=== PATIENT | female | born 1960 | race Two or more races ===

== ENCOUNTER 2021-12-17 08:27 | Outpatient (REF) | payer MEDICAID, SELFPAY ==
--- NOTE | ~2021-12-17 | XR_ITS ---
EXAMINATION: XR SHOULDER, RIGHT CLINICAL INFORMATION: Shoulder pain COMPARISON: None TECHNIQUE: Three views of the right shoulder. FINDINGS: Visualized portions of the proximal right humerus demonstrate no fracture. Humeral head demonstrates good articulation with the glenoid fossa. There are mild hypertrophic changes of the right acromioclavicular joint. Visualized right-sided ribs and lung parenchyma are unremarkable. XR/XR shoulder RT min 2V IMPRESSION: Mild degenerative changes of the right shoulder without fracture or dislocation.
== END 2021-12-17 08:28 | disposition home or self-care (01) ==
LOC: HO.HOSX 08:27
PROVIDERS: Visit Provider Orthopaedic Surgery
DX: M25.311 Other instability, right shoulder (principal)
CPT/HCPCS: 73030; 99202

== ENCOUNTER → 2022-02-04 13:36 | Outpatient (BNVA) | payer MEDICAID, SELFPAY | PROVIDERS: PCP Internal Medicine; Referring Provider Internal Medicine; Visit Provider Internal Medicine Cardiovascular Disease | DX: R00.2 Palpitations (principal) | CPT/HCPCS: 93005; 99202 ==

== ENCOUNTER → 2022-03-30 14:35 | Outpatient (REF) | payer MEDICAID, SELFPAY ==
--- NOTE | 2022-03-30 14:44 | HM_ITS ---
* Total monitoring time 6 days and 23 hours. * Underlying rhythm is sinus. Average 62/Min. Range 43 to 98/Min. * No atrial fibrillation or flutter or AV blocks or pauses. * Very rare ventricular ectopy with minimal burden. * No patient events.5 MTDD
== END ==
LOC: HO.CARD 14:35
PROVIDERS: Visit Provider Internal Medicine Cardiovascular Disease
DX: R00.2 Palpitations (principal)
CPT/HCPCS: 93242

== ENCOUNTER → 2022-04-26 12:44 | Outpatient (BNVA) | payer MEDICAID, SELFPAY | PROVIDERS: PCP Internal Medicine; Visit Provider Internal Medicine Pulmonary Disease | DX: J44.9 Chronic obstructive pulmonary disease, unspecified (principal); G47.33 Obstructive sleep apnea (adult) (pediatric); R91.8 Other nonspecific abnormal finding of lung field | CPT/HCPCS: 99202 ==

== ENCOUNTER → 2022-04-28 14:29 | Outpatient (BNVA) | payer MEDICAID, SELFPAY | PROVIDERS: PCP Internal Medicine; Referring Provider Internal Medicine; Visit Provider Internal Medicine Cardiovascular Disease | DX: R00.2 Palpitations (principal); R06.09 Other forms of dyspnea; U07.1 COVID-19 | CPT/HCPCS: 99212 ==

== ENCOUNTER 2022-04-30 12:40 | Outpatient (REF) | payer MEDICAID, SELFPAY ==
--- NOTE | ~2022-04-30 | CT_ITS ---
EXAMINATION: CT CHEST WITHOUT CONTRAST CLINICAL INFORMATION: Other nonspecific abnormal finding of lung field COMPARISON: None TECHNIQUE: Multidetector volumetric CT imaging of the chest was done. Axial MIP volume rendering provided. Sagittal and coronal reformatted images were obtained. This CT examination was performed using dose optimization techniques as appropriate, variously including the following: *Automated exposure control *Adjustment of mA and/or kV according to patient size (this includes techniques or standardized protocols for targeted exams where dose is matched to indication/reason for exam; i.e. extremities or head) *Use of iterative reconstruction technique DLP: 347 mGy-cm FINDINGS: LUNGS: There is a 2 mm right upper lobe nodule axial image 72 series 5. There is a 2 mm right upper lobe nodule axial image 143 series 5. There is a 2 mm right upper lobe nodule axial image 116 series 5. There is a 2 mm superior segment left lower lobe nodule axial image 172 series 5. There is a 2 mm superior segment right lower lobe nodule axial image 206 series 5. There is a 2 mm right lower lobe nodule axial image 247 series 5. There is a 2 mm left lower lobe nodule adjacent to the fissure axial image 258 series 5. There is a 2 mm right lower lobe nodule adjacent to the major fissure axial image 272 series 5. There is a 2 mm right lower lobe nodule axial 339 series 5. There is a 2 mm peripheral or subpleural left lower lobe nodule axial image 392 series 5. There is a 1 to 2 mm left lower lobe nodule axial image 457 series 5. No evidence of emphysema interstitial lung disease or bronchiectasis. No endobronchial or endotracheal lesion. MEDIASTINUM: There is coronary artery calcification. The mediastinum is otherwise normal. PLEURA: There is no pleural effusion. No pleural mass or thickening. AXILLA: No lymphadenopathy. UPPER ABDOMEN: Gallbladder appears contracted. There may be diverticulosis of the colon. OSSEOUS STRUCTURES: There are degenerative changes of the spine. CT/CT chest wo IV con IMPRESSION: Small pulmonary nodules. According to the UPDATED 2017 Fleischner Society recommendations, the advised follow-up imaging for less than 6 mm solid nodule: Low risk, no chest CT follow-up and high risk, optional chest CT follow-up in one year. Coronary artery calcification. Fleischner guidelines were followed.
== END 2022-04-30 12:41 | disposition home or self-care (01) ==
LOC: HO.CT 12:40
PROVIDERS: Visit Provider Internal Medicine Pulmonary Disease
DX: R91.8 Other nonspecific abnormal finding of lung field (principal)
CPT/HCPCS: 71250

== ENCOUNTER → 2022-05-07 12:33 | Outpatient (REF) | payer MEDICAID, SELFPAY ==
--- NOTE | 2022-05-07 12:37 | CA_ITS ---
Transthoracic Echocardiogram Patient (Last, First, Middle): Susie Owens, Gender: Female Date of : 1960 Age: 62 Procedure Date: 05/07/2022 Procedure Type: Transthoracic Echocardiogram Location: OP Height: 154.94 cm Weight: 118.84 kg BSA: 2.12 m2 Heart Rate: 54 bpm BP: 128 / 70 mmHg Manager [employer]: SB Referring MD: Eder Holman MD Symptoms: R00.2 - Palpitations Study Quality: Adequate w contrast ECG Rhythm: Bradycardia Conclusions: - Normal left ventricular size, thickness, and systolic function. The visually estimated ejection fraction is between 55-60%. - Elevated filling pressures. - Normal right ventricular cavity size. There is mildly decreased right ventricular systolic function. - There is mild dilatation of the ascending aorta measuring 3.20 cm. Findings Procedure Information Contrast agent, definity, is being given per protocol without apparent complications. Left Ventricle Normal left ventricular size, thickness, and systolic function. The visually estimated ejection fraction is between 55-60%. There is no evidence of regional wall motion abnormalities. Abnormal diastolic function is noted. Spectral Doppler is indicative of an impaired relaxation filling pattern. Elevated filling pressures. Right Ventricle Normal right ventricular cavity size. There is mildly decreased right ventricular systolic function. Atria The left atrium is normal in size. Aortic Valve There is a normal trileaflet aortic valve. There is mild calcification of the aortic valve. There is no aortic valve stenosis. There is no aortic valve regurgitation. Mitral Valve There is moderate mitral annular calcification. There is no mitral valve regurgitation. There is no mitral valve stenosis. Pulmonic Valve Normal pulmonic valve structure and function. Tricuspid Valve Normal tricuspid valve structure and function. There is trace tricuspid valve regurgitation. Normal right atrial pressure. There is no evidence of pulmonary hypertension. Great Vessels There is mild dilatation of the ascending aorta measuring 3.20 cm. The visualized portions of the pulmonary artery and branches are normal. Venous The inferior vena cava is normal in size and collapses greater than 50% with inspiration. Pericardium/Pleural Normal pericardial structure. There is no evidence of pericardial effusion. Prior Study Comparison No prior study available for comparison. Measurements 2D Linear Measurements IVSd: 0.86 0.6-0.9/0.6-1.0 cm LVIDd: 5.72 3.9-5.3/4.2-5.9 cm LVIDd Index: 2.70 2.4-3.2/2.2-3.1 cm/m2 LVIDs: 3.21 2.0-3.6 cm LVPWd: 1.07 0.7-1.1 cm LA Diam: 3.90 2.7-3.8/3.0-4.0 cm LAIDs Index: 1.84 1.5-2.3 cm/m2 LV Mass: 271.70 67-162/88-224 g LV Mass Index: 128.16 43-95/49-115 g/m2 LVOT Diam: 2.00 3.0+(-)1.3 cm 2D Systolic Function EF 4C: 70.40 >55% EF 2C: 60.90 >55% EF BiP: 66.90 >55% Mitral Valve MV Pk E: 0.94 MV PK A: 1.00 MV Decel Time: 262.00 E/A: 0.90 E'Lateral: 8.76 E'Medial: 5.27 E/E' Med: 17.80 E/E' Lat: 10.70 PHT: 77.00 MVA PHT: 2.86 Decel [place]: 3.57 Aortic Valve AoV Pk Joel: 1.54 AoV Mn Joel: 0.94 AoV VTI: 0.33 AoV Pk Grad: 9.00 Aov Mn Grad: 4.00 YANI Cont.VTI: 2.65 LVOT LVOT Pk Joel: 1.22 LVOT Mn Joel: 0.79 LVOT VTI: 0.28 LVOT Pk Grad: 6.00 LVOT Mn Grad: 3.00 LVOT Diam: 2.00 LVOT Area: 3.14 Diastolic Function MV Pk E: 0.94 MV Pk A: 1.00 E/A: 0.90 E'Medial: 5.27 E/E' Med: 17.80 E' Laterial: 8.76 E/E' Lat: 10.70 Right Ventricle TAPSE (mm): 16.30 TVS' Joel: 8.60 Tricuspid Valve TR Pk Joel: 2.14 TR Pk Grad: 18.00 RA Press: 3.00 RVSP: 21.00 Great Vessels Aorta Sinus of Valsalva: 2.90 2.0-3.5 cm Ao Asc: 3.20 2.1-3.4 cm Pulmonary Valve PV Pk Joel: 1.02 Peak PV Grad: 4.00 Updated in Other Vendor System with Status of Final Alli Brunson MD electronically signed on 05/07/2022 11:30:55 PM with status of Final
== END ==
LOC: HO.CARD 12:33
PROVIDERS: Visit Provider Internal Medicine Pulmonary Disease
DX: R00.2 Palpitations (principal)
CPT/HCPCS: 93306; Q9957

== ENCOUNTER 2022-05-12 14:46 | Outpatient (REF) | payer MEDICAID, SELFPAY ==
--- NOTE | ~2022-05-12 | CT_ITS ---
EXAMINATION: CT ABDOMEN AND PELVIS WITHOUT CONTRAST CLINICAL INFORMATION: Left upper and lower quadrant pain. COMPARISON: None TECHNIQUE: Multidetector volumetric imaging was performed from the superior aspect of the liver through the pubic symphysis. Sagittal and coronal reformatted images were obtained on the technologist's workstation. This CT examination was performed using dose optimization techniques as appropriate, variously including the following: *Automated exposure control *Adjustment of mA and/or kV according to patient size (this includes techniques or standardized protocols for targeted exams where dose is matched to indication/reason for exam; i.e. extremities or head) *Use of iterative reconstruction technique DLP: 857 mGy-cm FINDINGS: LUNG BASES: The lung bases are clear. Heart size is normal. LIVER, GALLBLADDER, AND BILIARY TREE: The liver is normal in size, shape, and attenuation. No focal hepatic lesion or biliary ductal dilatation is present. The gallbladder is unremarkable with no evidence of radiopaque gallstones, gallbladder wall thickening, or obvious pericholecystic inflammatory changes. PANCREAS: Unremarkable. SPLEEN: Unremarkable. ADRENAL GLANDS: Unremarkable. KIDNEYS AND URETERS: The kidneys are normal in size, shape, and attenuation. No hydronephrosis, hydroureter, or calculi seen. No perinephric stranding. BLADDER: Unremarkable. GASTROINTESTINAL TRACT: There is scattered stool and diverticuli seen throughout the colon without distention or diverticulitis. There is no obstruction. Oral contrast opacified. Small bowel loops are of normal caliber. Appendix is of normal caliber and the stomach is nondistended. ABDOMINAL WALL: No significant hernia is appreciated. LYMPH NODES: Normal. VASCULAR: Unremarkable. PELVIC VISCERA: There is a very large iliopsoas lipoma measuring 20 cm in craniocaudad length extending from the mid pelvis inferiorly below the left groin. It is a 5.5 cm in AP and 3.9 cm wide at the level of left inguinal canal. The lipoma displaces the iliac vessels medially. OSSEOUS STRUCTURES: Healed fractures left lower ribs CT/CT abdomen pelvis wo IV con IMPRESSION: No acute abnormality is seen. 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 Scattered colonic diverticulosis without diverticulitis. Mild constipation. Fleischner guidelines were followed.
[2022-05-12] MEDS: Barium Sulfate Oral (Vanilla) 450 ML ORAL.SUSP 900 ML PO (17:00)
== END 2022-05-12 14:47 | disposition home or self-care (01) ==
LOC: HO.CT 14:46
PROVIDERS: Visit Provider Emergency Medicine
DX: R10.12 Left upper quadrant pain (principal); R10.32 Left lower quadrant pain
CPT/HCPCS: 74176

== ENCOUNTER → 2022-05-24 09:34 | Outpatient (BNVA) | payer MEDICAID, SELFPAY | PROVIDERS: PCP Internal Medicine; Visit Provider Orthopaedic Surgery | DX: M25.311 Other instability, right shoulder (principal); M75.101 Unspecified rotator cuff tear or rupture of right shoulder, not specified as traumatic | CPT/HCPCS: 99212 ==

== ENCOUNTER 2022-06-03 13:35 | Outpatient (REF) | payer MEDICAID, SELFPAY ==
--- NOTE | 2022-06-03 15:03 | PFT_ITS ---
Forced vital capacity 91%, FEV1 101%, FEF25/75 139%, and MVV 117%. Post bronchodilator therapy, there is no change. Total lung capacity 76%. Residual volume 51%. Diffusion capacity 73%. CONCLUSION: Mild restrictive pulmonary disorder. No obstructive airway disorder. No response to bronchodilator therapy. Clinical correlation is recommended. MD BRAYDON Patel/PATRICK / [id number]
== END 2022-06-03 13:36 | disposition home or self-care (01) ==
LOC: HO.RESP 13:35
PROVIDERS: PCP Internal Medicine; Visit Provider Internal Medicine Pulmonary Disease
DX: R06.00 Dyspnea, unspecified (principal); J44.9 Chronic obstructive pulmonary disease, unspecified
CPT/HCPCS: 94060; 94727; 94729; 99212

== ENCOUNTER → 2022-06-16 05:51 | Day surgery (SDC) | payer MEDICAID, SELFPAY ==
[2022-06-10 15:36] VITALS: BMI 43.9
--- NOTE | 2022-06-11 12:07 | P.CONAN_ITS ---
Documented by User: Hollie Rojas NP 06/11/22 12:10 HPI - Anesthesia Eval Consult details Narrative: 62yo F for Right Shoulder Rotator Cuff Repair, capsular plication Pulmo cleared at low risk. Consider extubation to BiPAP for CELE, consider bronchidilators PMFSH Active Problems Active Problems: All Active Problems (Updated 06/10/22 @ 15:33 by Lucy Mock, RN) Other instability, right shoulder (Acute) Palpitations (Acute) Asthma-COPD overlap syndrome (Acute) Pulmonary nodules (Acute) CEEL (obstructive sleep apnea) (Acute) SNOW (dyspnea on exertion) (Acute) Diabetes mellitus (Acute) Right rotator cuff tear (Acute) Pulmonary hypertension, pre-operative cardiovascular examination (Acute) Past Medical History Medical History (Updated 06/11/22 @ 12:08 by Hollie Rojas NP) Active asthma Asthma-COPD overlap syndrome Diabetes mellitus GERD (gastroesophageal reflux disease) High blood pressure High cholesterol Low back pain CELE (obstructive sleep apnea) Family History Family History Father Heart disease Mother Heart disease Surgical History Surgical History (Updated 06/16/22 @ 06:30 by Rachana Solis) H/O adenoidectomy Hx of hysterectomy Social History Social History Household Members Other:: sisiter Are you a primary lawn care specialist to a significant other at home: No Do you presently have visiting nurse or other home services: No Patient Tobacco Use Status: Former Tobacco user Quit Date: 04/2021 Tobacco use type: Cigarette Are you DNR?: No Advance Directives: No Advance Directives Information Provided: Yes Recently lost weight without trying: No Current occupational status: disabled Current occupation: rt hand Meds Allergies Allergy/AdvReac Type Severity Reaction Status Date / Time black pepper Allergy Severe Hives,rash, Verified 06/16/22 06:07 itching Home Medications Medication Instructions Recorded Confirmed Last Taken Type albuterol sulfate 90 mcg/actuation 2 puff PO Q4-6H PRN Shortness Of 12/17/21 06/10/22 Unknown History aerosol inhaler (ProAir HFA) Breath Or Wheezing atorvastatin 10 mg tablet 10 mg PO DAILY 12/17/21 06/10/22 Unknown History bupropion HCl 150 mg 24 hr tablet, 150 mg PO QAM 12/17/21 06/10/22 Unknown History extended release ergocalciferol (vitamin D2) 1,250 1,250 mcg PO QWEEK 12/17/21 06/10/22 Unknown History mcg (50,000 unit) capsule (Vitamin D2) fexofenadine 180 mg tablet 180 mg PO DAILY PRN allergies 12/17/21 06/10/22 Unknown History gabapentin 300 mg capsule 300 mg PO BID 12/17/21 06/10/22 Unknown History gabapentin 600 mg tablet 600 mg PO BEDTIME 12/17/21 06/10/22 Unknown History isosorbide mononitrate 30 mg 30 mg PO QAM 12/17/21 06/10/22 Unknown History tablet,extended release 24 hr lisinopril 40 mg tablet 40 mg PO DAILY blood pressure 12/17/21 06/10/22 Unknown History metformin 500 mg tablet 500 mg PO QAM diabetes mellitus 12/17/21 06/16/22 06/15/22 History metoprolol succinate 25 mg 25 mg PO DAILY 12/17/21 06/10/22 Unknown History tablet,extended release 24 hr montelukast 10 mg tablet 10 mg PO QPM 12/17/21 06/10/22 Unknown History omeprazole 20 mg capsule,delayed 20 mg PO DAILY heartburn 12/17/21 06/10/22 Unknown History release polyethylene glycol 3350 17 17 g PO DAILY 12/17/21 06/10/22 Unknown History gram/dose oral powder chlorthalidone 25 mg tablet 25 mg PO DAILY 02/04/22 06/10/22 Unknown History trazodone 150 mg tablet 150 mg PO BEDTIME insomnia 02/04/22 06/10/22 Unknown History Exam Exam Date and Time: June 11, 2022 1207 Height,Weight and Vital Signs: Height 5 ft 5 in Weight 119.748 kg Narrative Narrative: EKG 01/2022 Sinus bradycardia 53 beats per minute, normal axis, normal EKG, QT interval 407 milliseconds 7 Day Holter 02/2022 * Total monitoring time 6 days and 23 hours. * Underlying rhythm is sinus.? Average 62/Min.? Range 43 to 98/Min. * No atrial fibrillation or flutter or AV blocks or pauses. * Very rare ventricular ectopy with minimal burden. * No patient events.5 ECHO 04/2022 Conclusions: - Normal left ventricular size, thickness, and systolic function. The visually estimated ejection fraction is between 55-60%.? ? ? - Elevated filling pressures.? - Normal right ventricular cavity size.? There is mildly ? decreased right ventricular systolic function. ? - There is mild dilatation of the ascending aorta measuring 3.20 cm.? ?? PFT 05/2022 CONCLUSION:? Mild restrictive pulmonary disorder. ? No obstructive airway disorder. ? No response to bronchodilator therapy. ? Clinical correlation is recommended. Assessment and Plan Assessment Anesthesia Assessment: Chart Reviewed Documented by User: Vinod Lara MD 06/16/22 07:11 [facility] Past Medical History Medical History (Updated 06/11/22 @ 12:08 by Hollie Rojas NP) Active asthma Asthma-COPD overlap syndrome Diabetes mellitus GERD (gastroesophageal reflux disease) High blood pressure High cholesterol Low back pain CELE (obstructive sleep apnea) Functional capacity: independent ambulation Family History Family History Father Heart disease Mother Heart disease Family history of problems with anesthesia: No Surgical History Surgical History (Updated 06/16/22 @ 06:30 by Rachana Solis) H/O adenoidectomy Hx of hysterectomy History of Problems with Anesthesia: No Social History Social History Household Members Other:: sisiter Are you a primary lawn care specialist to a significant other at home: No Do you presently have visiting nurse or other home services: No Patient Tobacco Use Status: Former Tobacco user Quit Date: 04/2021 Tobacco use type: Cigarette Are you DNR?: No Advance Directives: No Advance Directives Information Provided: Yes Recently lost weight without trying: No Current occupational status: disabled Current occupation: rt hand Meds Allergies Allergy/AdvReac Type Severity Reaction Status Date / Time black pepper Allergy Severe Hives,rash, Verified 06/16/22 06:07 itching Home Medications Medication Instructions Recorded Confirmed Last Taken Type albuterol sulfate 90 mcg/actuation 2 puff PO Q4-6H PRN Shortness Of 12/17/21 06/10/22 Unknown History aerosol inhaler (ProAir HFA) Breath Or Wheezing atorvastatin 10 mg tablet 10 mg PO DAILY 12/17/21 06/10/22 Unknown History bupropion HCl 150 mg 24 hr tablet, 150 mg PO QAM 12/17/21 06/10/22 Unknown History extended release ergocalciferol (vitamin D2) 1,250 1,250 mcg PO QWEEK 12/17/21 06/10/22 Unknown History mcg (50,000 unit) capsule (Vitamin D2) fexofenadine 180 mg tablet 180 mg PO DAILY PRN allergies 12/17/21 06/10/22 Unknown History gabapentin 300 mg capsule 300 mg PO BID 12/17/21 06/10/22 Unknown History gabapentin 600 mg tablet 600 mg PO BEDTIME 12/17/21 06/10/22 Unknown History isosorbide mononitrate 30 mg 30 mg PO QAM 12/17/21 06/10/22 Unknown History tablet,extended release 24 hr lisinopril 40 mg tablet 40 mg PO DAILY blood pressure 12/17/21 06/10/22 Unknown History metformin 500 mg tablet 500 mg PO QAM diabetes mellitus 12/17/21 06/16/22 06/15/22 History metoprolol succinate 25 mg 25 mg PO DAILY 12/17/21 06/10/22 Unknown History tablet,extended release 24 hr montelukast 10 mg tablet 10 mg PO QPM 12/17/21 06/10/22 Unknown History omeprazole 20 mg capsule,delayed 20 mg PO DAILY heartburn 12/17/21 06/10/22 Unknown History release polyethylene glycol 3350 17 17 g PO DAILY 12/17/21 06/10/22 Unknown History gram/dose oral powder chlorthalidone 25 mg tablet 25 mg PO DAILY 02/04/22 06/10/22 Unknown History trazodone 150 mg tablet 150 mg PO BEDTIME insomnia 02/04/22 06/10/22 Unknown History Exam Airway Mallampati Class: IV Loose/Missing/Broken Teeth: Yes (Chipped upper front , poor ) Assessment and Plan Final Anesthetic Review Family History of Problems with Anesthesia: No History of Problems with Anesthesia: No NPO: Yes ASA Class: IV Final Preanesthetic Review: Meds/Allgs Chart Reviewed, Consent Obtained/Reviewed and Anes Risks/Benef Reviewed Patient Risk: Intermediate Procedure Risk: Intermediate Anesthetic Plan Anesthetic Plan: GA Disposition: Standard PACU
[2022-06-16 06:14] VITALS: BP 116/49; PULSE 62; RESP 16; TEMP 36.5; O2SAT 98
[2022-06-16 06:30] LABS: Hematocrit 34.5 % (37.0-47.0); Hemoglobin 11.3 g/dl (12.0-16.0); Mean Corpuscular HGB Conc 32.8 g/dl (31.0-35.0); Mean Corpuscular Hemoglobin 29.5 pg (27.0-33.0); Mean Corpuscular Volume 90.1 fL (80.0-98.0); Mean Platelet Volume 10.9 fL (9.4-12.3); Platelet Count 190 X10*3/uL (160-400); Red Blood Count 3.83 X10*6/uL (4.20-5.50); Red Cell Distribution Width 12.7 % (11.0-16.0); White Blood Count 7.6 X10*3/uL (4.8-10.8)
[2022-06-16 06:34] LABS: Glucose, Whole Blood 106 mg/dL (60-115)
[2022-06-16] MEDS: Albuterol Sulfate (0.083%) 2.5 MG/3 ML VIAL.NEB INHALE (06:40)
[2022-06-16 06:42] VITALS: PULSE 88; RESP 16
[2022-06-16] MEDS: Lactated Ringers 1,000 ML 100 ML IVCONT (06:43)
[2022-06-16 06:51] LABS: Anion Gap 16 (12-20); Blood Urea Nitrogen 47 mg/dL (9-16); Calcium 9.1 mg/dL (8.4-10.2); Carbon Dioxide 18 mmol/L (22-29); Chloride 109 mmol/L (96-108); Creatinine Clr Calc Pharmacy 28.6; Estimated Glomerular Filt Rate 18; Glucose Fasting 103 mg/dL (60-99); Potassium 5.2 mmol/L (3.3-5.1); Sodium 138 mmol/L (135-145)
--- NOTE | 2022-06-16 07:30 | PC.NURSE ---
Addendum entered by Rachana Solis 06/16/22 08:41: PRN angio pulled prior to discharge. Site asymptomatic, tolerated well. All patient belongings and CPAP returned to her. Original Note: Patient prepped for surgery in preop area. Dr. Lara and Dr. Hui at bedside. High BUN/Creat/Potassium that was drawn this AM being discussed with patient. Patient states I have CKD . According to patient she moved here from [place] recently and used to see a renal doctor there. Unknown name of doctor, no renal reports on file or in chart. CKD added to patients diagnoses per Dr. Lara. Per Dr. Hui and Dr. Lara, procedure to be postponed until she sees a renal doctor. Patient understands.
== END ==
PROVIDERS: Nurse Practitioner; PCP Internal Medicine; Visit Provider Orthopaedic Surgery
DX: M25.311 Other instability, right shoulder (principal); Z53.09 Procedure and treatment not carried out because of other contraindication; R79.9 Abnormal finding of blood chemistry, unspecified; J45.909 Unspecified asthma, uncomplicated; G47.33 Obstructive sleep apnea (adult) (pediatric); E11.9 Type 2 diabetes mellitus without complications; I10 Essential (primary) hypertension
CPT/HCPCS: 36415; 80048; 82947; 85027; 94640; J0171; J0690; J1100; J2250; J2405; J2795; J3010

== ENCOUNTER → 2022-06-23 13:53 | Outpatient (BNVA) | payer MEDICAID, SELFPAY | PROVIDERS: PCP Internal Medicine; Referring Provider Internal Medicine; Visit Provider Surgery | DX: D17.5 Benign lipomatous neoplasm of intra-abdominal organs (principal) | CPT/HCPCS: 99202 ==

== ENCOUNTER → 2022-07-14 07:29 | Outpatient (REF) | payer MEDICAID, SELFPAY ==
--- NOTE | 2022-07-14 07:36 | CA_ITS ---
Acquisition Time: 2022-07-14 07:42:59 Total Exercise Time: 00:00:42 Test Indications: Dyspnea Medications: SEE H Protocol: FRANCO Max HR: 082 BPM 51% of Pred: 160 BPM Max BP: 132/068 mmHG Max Work Load: 1.9 METS Exercise stress test with exercise 42 sec of Franco protocol ( speed had been reduced to 1.4 MPH), with need to stop exercise due to much difficulty keeping up with treadmill and moderate sob, without arrythmia, with normotensive response to walking, with nondiagnostic EKG for ischemia due to suboptimal exercise time and heart rate. Once in recovery she did report of mild discomfort in her mid chest which resolved with further relaxation. Breathing normalized with rest. Will order a pharmacological nuclear stress test for further evaluation of symptoms. Test reviewed with Dr Montoya Referred By: Alli Brunson Overread By: AFIA VINCENT
[2022-07-14 09:44] LABS: MANUAL DIFF FLAG NO
[2022-07-14 10:15] LABS: Basophils Percent Auto 0.5 % (0-2); Eosinophils Absolute Auto 0.1 X10*3/uL (0.0-0.4); Eosinophils Percent Auto 1.9 % (0-4); Hematocrit 34.2 % (37.0-47.0); Imm Gran Abs Auto 0.02 X10*3/uL (0.00-0.03); Imm Gran Pct Auto 0.3 % (0.0-0.4); Lymphocytes Absolute Auto 1.8 X10*3/uL (1.2-4.9); Lymphocytes Percent Auto 28.3 % (20-40); Mean Corpuscular HGB Conc 32.2 g/dl (31.0-35.0); Mean Corpuscular Hemoglobin 29.1 pg (27.0-33.0); Mean Corpuscular Volume 90.5 fL (80.0-98.0); Mean Platelet Volume 10.6 fL (9.4-12.3); Monocytes Absolute Auto 0.5 X10*3/uL (0.1-1.2); Monocytes Percent Auto 8.1 % (2-11); Neutrophils Absolute Auto 3.8 x10*3/uL (2.0-8.3); Neutrophils Percent Auto 60.9 % (45-73); Platelet Count 173 X10*3/uL (160-400); Red Blood Count 3.78 X10*6/uL (4.20-5.50); Red Cell Distribution Width 13.4 % (11.0-16.0); White Blood Count 6.2 X10*3/uL (4.8-10.8)
[2022-07-14 10:54] LABS: Albumin Level 4.5 g/dL (3.5-5.0); Anion Gap 15 (12-20); Blood Urea Nitrogen 37 mg/dL (9-16); Calcium 9.2 mg/dL (8.4-10.2); Carbon Dioxide 20 mmol/L (22-29); Chloride 107 mmol/L (96-108); Estimated Glomerular Filt Rate 19; HBS Num1 0.32 mIU/mL (0-7.99); HBc Num1 0.17 S/CO (0.00-0.79); HBsAGNum1 0.38 S/CO (0.00-0.99); Hepatitis B Core Antibody Nonreactive (Nonreactive); Hepatitis B Surface Antigen Negative (Negative); Magnesium 1.8 mg/dL (1.6-2.6); Phosphorus 3.6 mg/dL (2.7-4.5); Potassium 4.6 mmol/L (3.3-5.1); Sodium 137 mmol/L (135-145); Vitamin D 25-OH Total 37.5 ng/mL (>30); ~HepC Num1 0.08 S/CO (0.00-0.79); ~Hepatitis B Surface Antibody NONREACTIVE (Nonreactive); ~Hepatitis C Antibody Nonreactive (Nonreactive)
[2022-07-14 11:00] LABS: Appearance Urine Clear; Color Urine Yellow; Glucose Urine UA Negative (Negative); Leukocyte Esterase Urine Negative (Negative); Nitrite Urine Negative (Negative); Urine Blood Negative (Negative); Urine Ketones Trace mg/dL (Negative); Urine Protein Negative (Neg-Trace)
[2022-07-14 11:13] LABS: Bacteria Urine None Seen (None Seen); RBC Urine 0-2 /HPF (0-2); Squamous Epithelial Cell Urine 0-2 /HPF (0-2); WBC Urine 0-5 /HPF (0-5)
[2022-07-14 12:06] LABS: Creatinine Urine 322.02 mg/dL; Microalbum/Creatinine Ratio Ur 3.7 ug/mg cr; Protein/Creatinine Ratio, Ur 0.03 (<0.2); Total Protein Urine Random 11 mg/dL (<12)
[2022-07-15 08:46] LABS: Complement C3 142 mg/dL (83-193)
[2022-07-15 14:16] LABS: Calcium (PTHI) 9.3 mg/dL (8.6-10.4); PTHI 142 pg/mL (16-77)
[2022-07-16 13:07] LABS: Prot Elec - Albumin 4.5 g/dL (3.8-4.8); Prot Elec - Alpha1 0.3 g/dL (0.2-0.3); Prot Elec - Alpha2 0.9 g/dL (0.5-0.9); Prot Elec - Beta 1 0.5 g/dL (0.4-0.6); Prot Elec - Beta 2 0.3 g/dL (0.2-0.5); Prot Elec - Gamma 0.8 g/dL (0.8-1.7); Prot Elec - Total Protein 7.3 g/dL (6.1-8.1)
[2022-07-16 14:03] LABS: Kappa Light Chain, Free Serum 30.5 mg/L (3.3-19.4); Lambda Light Chain, Free Serum 25.4 mg/L (5.7-26.3)
[2022-07-16 20:06] LABS: Immunoglobulin M 32 mg/dL (50-300)
[2022-07-20 11:07] LABS: Anti Nuclear Antibody Pattern Nuclear, Homogeneous; Anti Nuclear Antibody Screen POSITIVE (NEGATIVE); Anti Nuclear Antibody Titer 1:40 titer
== END ==
LOC: HO.CARD 07:29
PROVIDERS: Internal Medicine Nephrology; PCP Internal Medicine; Visit Provider Internal Medicine Cardiovascular Disease
DX: R06.09 Other forms of dyspnea (principal); E11.22 Type 2 diabetes mellitus with diabetic chronic kidney disease; N18.32 Chronic kidney disease, stage 3b; N25.0 Renal osteodystrophy
CPT/HCPCS: 36415; 80051; 81001; 82040; 82043; 82306; 82310; 82565; 82784; 83521; 83735; 83970; 84100; 84156; 84165; 84520; 85025; 86038; 86039; 86160; 86704; 86706; 86803; 87086; 87340; 93017

== ENCOUNTER → 2022-07-19 11:34 | Outpatient (BNVA) | payer MEDICAID, SELFPAY | PROVIDERS: PCP Internal Medicine; Referring Provider Internal Medicine; Visit Provider Nurse Practitioner Family | DX: Z12.11 Encounter for screening for malignant neoplasm of colon (principal); K58.1 Irritable bowel syndrome with constipation; D17.1 Benign lipomatous neoplasm of skin and subcutaneous tissue of trunk | CPT/HCPCS: 99202 ==

== ENCOUNTER → 2022-07-28 12:35 | Outpatient (BNVA) | payer MEDICAID, SELFPAY | PROVIDERS: PCP Internal Medicine; Visit Provider Nurse Practitioner Family | DX: R94.39 Abnormal result of other cardiovascular function study (principal); R06.09 Other forms of dyspnea; I12.9 Hypertensive chronic kidney disease with stage 1 through stage 4 chronic kidney disease, or unspecified chronic kidney disease; N18.9 Chronic kidney disease, unspecified; J44.9 Chronic obstructive pulmonary disease, unspecified | CPT/HCPCS: 99212 ==

== ENCOUNTER 2022-08-11 14:28 | Outpatient (REF) | payer MEDICAID, SELFPAY ==
[2022-08-11 14:52] LABS: MANUAL DIFF FLAG NO
[2022-08-11 15:04] LABS: Basophils Percent Auto 0.4 % (0-2); Eosinophils Absolute Auto 0.1 X10*3/uL (0.0-0.4); Eosinophils Percent Auto 1.7 % (0-4); Hematocrit 33.4 % (37.0-47.0); Hemoglobin 10.6 g/dl (12.0-16.0); Imm Gran Abs Auto 0.03 X10*3/uL (0.00-0.03); Imm Gran Pct Auto 0.4 % (0.0-0.4); Lymphocytes Absolute Auto 1.3 X10*3/uL (1.2-4.9); Mean Corpuscular HGB Conc 31.7 g/dl (31.0-35.0); Mean Corpuscular Hemoglobin 29.7 pg (27.0-33.0); Mean Corpuscular Volume 93.6 fL (80.0-98.0); Mean Platelet Volume 11.2 fL (9.4-12.3); Monocytes Absolute Auto 0.4 X10*3/uL (0.1-1.2); Monocytes Percent Auto 5.5 % (2-11); Platelet Count 184 X10*3/uL (160-400); Red Blood Count 3.57 X10*6/uL (4.20-5.50); Red Cell Distribution Width 13.3 % (11.0-16.0); White Blood Count 6.9 X10*3/uL (4.8-10.8)
[2022-08-11 15:13] LABS: Prothrombin Time 11.9 SEC (10.0-13.1)
[2022-08-11 15:28] LABS: Anion Gap 14 (12-20); Blood Urea Nitrogen 26 mg/dL (9-16); Calcium 9.4 mg/dL (8.4-10.2); Carbon Dioxide 25 mmol/L (22-29); Chloride 106 mmol/L (96-108); Estimated Glomerular Filt Rate 23; Glucose Random 160 mg/dL (60-115); Potassium 4.8 mmol/L (3.3-5.1); Sodium 140 mmol/L (135-145)
== END 2022-08-11 14:29 | disposition home or self-care (01) ==
LOC: HO.LAB 14:28
PROVIDERS: PCP Internal Medicine; Visit Provider Nurse Practitioner Family
DX: R06.09 Other forms of dyspnea (principal)
CPT/HCPCS: 36415; 80048; 85025; 85610

== ENCOUNTER 2022-09-21 14:27 | Outpatient (REF) | payer MEDICAID, SELFPAY ==
[2022-09-21 14:48] LABS: MANUAL DIFF FLAG NO
[2022-09-21 15:02] LABS: Basophils Percent Auto 0.3 % (0-2); Eosinophils Absolute Auto 0.1 X10*3/uL (0.0-0.4); Eosinophils Percent Auto 1.1 % (0-4); Hematocrit 33.3 % (37.0-47.0); Hemoglobin 10.8 g/dl (12.0-16.0); Imm Gran Abs Auto 0.02 X10*3/uL (0.00-0.03); Imm Gran Pct Auto 0.3 % (0.0-0.4); Lymphocytes Absolute Auto 1.5 X10*3/uL (1.2-4.9); Lymphocytes Percent Auto 21.7 % (20-40); Mean Corpuscular HGB Conc 32.4 g/dl (31.0-35.0); Mean Corpuscular Hemoglobin 29.9 pg (27.0-33.0); Mean Corpuscular Volume 92.2 fL (80.0-98.0); Mean Platelet Volume 10.9 fL (9.4-12.3); Monocytes Absolute Auto 0.4 X10*3/uL (0.1-1.2); Monocytes Percent Auto 6.1 % (2-11); Neutrophils Percent Auto 70.5 % (45-73); Platelet Count 181 X10*3/uL (160-400); Red Blood Count 3.61 X10*6/uL (4.20-5.50); Red Cell Distribution Width 12.5 % (11.0-16.0); White Blood Count 7.1 X10*3/uL (4.8-10.8)
[2022-09-21 16:23] LABS: Albumin Level 4.3 g/dL (3.5-5.0); Anion Gap 14 (12-20); Blood Urea Nitrogen 27 mg/dL (9-16); Calcium 9.2 mg/dL (8.4-10.2); Carbon Dioxide 22 mmol/L (22-29); Chloride 107 mmol/L (96-108); Estimated Glomerular Filt Rate 26; Magnesium 1.7 mg/dL (1.6-2.6); Phosphorus 2.6 mg/dL (2.7-4.5); Potassium 5.6 mmol/L (3.3-5.1); Sodium 137 mmol/L (135-145)
[2022-09-21 16:35] LABS: Appearance Urine Clear; Color Urine Yellow; Glucose Urine UA Negative (Negative); Leukocyte Esterase Urine Negative (Negative); Nitrite Urine Negative (Negative); PH 6.5 (5.0-9.0); Urine Blood Negative (Negative); Urine Ketones Negative (Negative); Urine Protein Negative (Neg-Trace)
[2022-09-21 16:37] LABS: Vitamin D 25-OH Total 38.2 ng/mL (>30)
[2022-09-21 16:37] LABS: Bacteria Urine 1+ (None Seen); Hyaline Casts Urine 0-2 /LPF (0-2); RBC Urine 0-2 /HPF (0-2); Squamous Epithelial Cell Urine 0-2 /HPF (0-2); WBC Urine 0-5 /HPF (0-5)
[2022-09-21 16:57] LABS: Creatinine Urine 158.09 mg/dL; Microalbum/Creatinine Ratio Ur 4.4 ug/mg cr; Protein/Creatinine Ratio, Ur 0.05 (<0.2); Total Protein Urine Random 8 mg/dL (<12)
[2022-09-22 11:37] LABS: Calcium (PTHI) 9.4 mg/dL (8.6-10.4); PTHI 117 pg/mL (16-77)
== END 2022-09-21 14:28 | disposition home or self-care (01) ==
LOC: HO.LAB 14:27
PROVIDERS: PCP Internal Medicine; Visit Provider Internal Medicine Nephrology
DX: N25.0 Renal osteodystrophy (principal); E11.22 Type 2 diabetes mellitus with diabetic chronic kidney disease; N18.32 Chronic kidney disease, stage 3b
CPT/HCPCS: 36415; 80051; 81001; 82040; 82043; 82306; 82310; 82565; 83735; 83970; 84100; 84156; 84520; 85025; 87086